=== PATIENT | female | born 1950 ===

== ENCOUNTER 2017-10-27 16:11 | Emergency (ER) | payer OTHER ==
[~2017-10-27] VITALS: Ht 157.5 cm; Wt 65.3 kg
[~2017-10-27 16:11] MED LIST: FLEXERIL10 MG PO
[2017-10-27] MEDS ORDERED: SYNTHROID75 MCG PO (16:55)
== END 2017-10-27 19:57 | disposition home or self-care (01) ==
LOC: ER 16:11
DX: M75.51 Bursitis of right shoulder (principal)

== ENCOUNTER 2018-07-03 15:39 | Emergency (ER) | payer OTHER ==
[~2018-07-03] VITALS: Ht 160 cm; Wt 61.2 kg
[~2018-07-03 15:39] MED LIST changes: +SYNTHROID75 MCG PO
== END 2018-07-03 22:20 | disposition home or self-care (01) ==
LOC: ER 15:39
DX: L08.89 Other specified local infections of the skin and subcutaneous tissue (principal); S91.331S Puncture wound without foreign body, right foot, sequela; W26.8XXS Contact with other sharp object(s), not elsewhere classified, sequela

== ENCOUNTER 2020-12-16 21:57 | Emergency (ER) | payer OTHER ==
[~2020-12-16] VITALS: Ht 157.5 cm; Wt 62.1 kg
[2020-12-16] MEDS ORDERED: SYNTHROID100 MCG PO (22:06)
== END 2020-12-16 23:54 | disposition home or self-care (01) ==
LOC: ER 21:57
DX: S00.83XA Contusion of other part of head, initial encounter (principal); W18.39XA Other fall on same level, initial encounter; Y93.89 Activity, other specified; Y92.488 Other paved roadways as the place of occurrence of the external cause; Y99.8 Other external cause status

== ENCOUNTER 2023-03-14 08:25 | Outpatient (CLI) | payer OTHER ==
[~2023-03-14 08:25] MED LIST changes: +SYNTHROID100 MCG PO
== END 2023-03-14 08:39 | disposition home or self-care (01) ==
LOC: NUCLEAR 08:25
PROVIDERS: ATTEND Internal Medicine Cardiovascular Disease
DX: G45.9 Transient cerebral ischemic attack, unspecified (principal)